=== PATIENT | female | born 1975 | race Hispanic/Latino ===

== ENCOUNTER 2017-12-12 14:21 | Emergency (ER) | payer OTHER | END 2017-12-12 15:32 | disposition home or self-care (01) | LOC: EDH 14:21 | DX: S13.8XXA Sprain of joints and ligaments of other parts of neck, initial encounter (principal); I10 Essential (primary) hypertension; V43.53XA Car driver injured in collision with pick-up truck in traffic accident, initial encounter; Y93.89 Activity, other specified; Y92.89 Other specified places as the place of occurrence of the external cause; Y99.8 Other external cause status | CPT/HCPCS: 72040 ==